=== PATIENT | male | born 1995 | race Caucasian/White ===

== ENCOUNTER → 2016-09-12 | Day surgery (SDC) | payer BC ==
[2016-09-10 16:46] VITALS: BMI 25.7
[~2016-09-12] MED LIST: BUPIVACAINE HCL/EPINEPHRINE/PF 30 ML VIAL IJ ONE; DESFLURANE GAS 240 ML BOTTLE IH ONE; DEXAMETHASONE SOD PHOSPHATE 4 MG/1 ML VIAL ONE; EPINEPHrine 1:1,000 1 MG/1 ML - 30ML VIAL (INJECTION) ONE; LACTATED RINGERS SOLUTION 1,000 ML IV SCH; MIDAZOLAM HCL 2 MG/2 ML SINGLE DOSE VIAL ONE; ONDANSETRON 4 MG/2 ML VIAL IVPUSH PRN; ONDANSETRON 4 MG/2 ML VIAL ONE; PROMETHAZINE HCL 25 MG/1 ML VIAL IVPUSH PRN; PROPOFOL 20 ML ONE; SUCCINYLCHOLINE CHLORIDE 200 MG/10 ML VIAL ONE; ceFAZolin SODIUM 1 GM VIAL ONE; oxyCODONE HCL 5 MG TABLET ONE; oxyCODONE HCL 5 MG TABLET PO PRN
--- NOTE | 2016-09-12 07:23 | HP ---
History & Physical Update - History History: No Change - Physical Physical: No Change - Assessment Assessment: No Change - Plan Plan: No Change (Here today for repair of his right knee meniscal tear. Planned procedure will include right knee arthroscopy and PRP injection.)
--- NOTE | 2016-09-12 09:20 | SURG ---
Surgery Handkerchief Folder Note Handkerchief Folder: Theo Ponce PA-C Date of Service: 09/12/16 Diagnosis: Right knee meniscal tear Procedure: Right knee arthroscopy. Repair right knee meniscal tear. Platelet Rich Plasma injection I was present for the entirety of the operative procedure. For further detail, please refer to operative report. Visit type - Case Type Case Type: Scheduled Admission - New patient This patient is new to me today: Yes Date on this admission: 09/12/16
[2016-09-12 09:47] VITALS: TEMP 97.8
[2016-09-12] MEDS: HYDROmorphone HCL CARPU-JECT 1 MG/1 ML DISP.SYRIN ONE ×2 (10:06→10:21)
[2016-09-12 12:00] VITALS: BP 143/59; PULSE 72
--- NOTE | 2016-09-18 15:09 | PATH ---
Surgical Pathology Report Patient Name: JAMIE KAUFFMAN Med. Rec. #: [id number] /Age/Gender: 1995 (Age: 21) / M Account: [id number] Location: [facility] Taken: 09/12/2016 Received: 09/12/2016 Reported: 09/18/2016 Physicians: Cristhian Ramsay M.D. Specimen(s) Received RIGHT KNEE SHAVINGS Clinical History Lateral meniscus tear right knee Final Diagnosis KNEE, RIGHT, ARTHROSCOPIC SHAVINGS: FIBROSYNOVIAL TISSUE. Electronically Signed Hortensia Owusu M.D. Gross Description Received in formalin, labeled "right knee shavings" is 1.5 x 1.5 x 0.2 cm in aggregate size multiple fragments of gloria-white soft tissue. Clinical Review Specialist section is submitted one cassette. AF/09/15/2016 final/09/15/2016
== END | disposition home or self-care (01) ==
LOC: FASU 05:58
PROVIDERS: ATTEND Orthopaedic Surgery
PROC: 3E0U3GC Introduction of Other Therapeutic Substance into Joints, Percutaneous Approach (ICD-10-PCS; 2016-09-12)
PROC: 0SQC4ZZ Repair Right Knee Joint, Percutaneous Endoscopic Approach (ICD-10-PCS; principal; 2016-09-12 08:15)
DX: S83.271A Complex tear of lateral meniscus, current injury, right knee, initial encounter (principal); X58.XXXA Exposure to other specified factors, initial encounter; Y93.9 Activity, unspecified; Y92.9 Unspecified place or not applicable
CPT/HCPCS: 0232T; 29882; 88304-TC; 94760